=== PATIENT | female | born 1985 | race Caucasian/White ===

== ENCOUNTER 2023-09-05 23:36 | Emergency (ER) | payer OTHER, SELFPAY ==
[2023-09-05 23:39] VITALS: BP 124/68
--- NOTE | 2023-09-06 01:25 | ED.GENMED ---
History of Present Illness
General
Chief Complaint: Musculo-Skeletal Complaint
Source: patient
Exam Limitations: none
Time Seen by Provider: 09/06/23 00:40
Travel History
Have you had any contact with someone who has COVID-19?: No
Do you have any symptoms of coronavirus? Fever > 100 degrees, chills, cough, shortness of breath, sore throat, loss of taste or smell, muscle aches, or headache?: No
History of Present Illness
History of Present Illness:
38-year-old female who was horseback riding this morning around 11 AM when she fell off and her foot twisted. She states she was able to continue riding and doing her chores. She states she was able to drive without difficulty. Later however did
get hurt when she would bear weight. Patient states she tried icing at home but decided come for evaluation. She denies numbness or tingling. The pain is mostly the plantar aspect of the foot
Past History
Past History
ED Past Medical History: None
Phy Exam
Physical Exam
Physical Exam:
CONSTITUTIONAL Vital signs reviewed, Patient alert and oriented to person, place and time. Well-appearing
HEAD atraumatic, normocephalic.
EYES eyelids normal to inspection, Extraocular muscles intact, Conjunctiva normal, Sclera normal.
NECK normal range of motion, Trachea midline, no jugular venous distention.
RESP no respiratory distress
BACK No obvious deformities
UPPER EXTREMITY Gross Range of motion normal, gross motor strength normal
LOWER EXTREMITY Gross range of motion normal, Gross motor strength normal. Medial and lateral malleolus nontender. Deltoid ligament nontender. ATF ligament nontender. Calcaneus nontender. Metatarsals nontender. Mild tenderness to the plantar
aspect of the foot. No dorsal tenderness near the talus.
NEURO Speech normal, No focal motor deficits include, Bradley coma scale 15, Memory normal, Cranial Nerves intact to screening exam.
SKIN Skin warm, dry, and normal in color.
PSYCHIATRIC Patient oriented to person place and time, Normal affect.
Course
Orders/Labs/Results
Orders:
Orders
09/05/23 23:42
Foot, Right 3 View [CR Foot - Right Min 3 Views] Urgent
Comment:
Reason For Exam: fell of her horse this morning pain with walking
Vital Signs
Initial and Last Documented VS:
Initial Vital Signs
Temp Pulse Resp BP Pulse Ox
98.3 F 69 16 124/68 100
09/05/23 23:39 09/05/23 23:39 09/05/23 23:39 09/05/23 23:39 09/05/23 23:39
Last Documented Vital Signs
Temp Pulse Resp BP Pulse Ox
98.3 F 69 16 124/68 100
09/05/23 23:39 09/05/23 23:39 09/05/23 23:39 09/05/23 23:39 09/05/23 23:39
MDM/Problems Addressed
MDM/Problems Addressed:
Foot injury
*Radiology
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
*Pulse Oximetry
Patient hypoxic: no
*Critical Care Note
Total Time (30-74mins, 75-104mins- exclusive of procedures): Not Applicable
Data Reviewed
Source: patient
Further Testing Considered But Not Given:
Considered CT but no clinical but no clinical suspicion for Lisfranc
Patient Management
Escalation/DeEscalation of care consider admission/obs:
No obvious fractures as I suspect the talus injury is chronic as she is not tender in that area. However will place in a boot. If she has pain with weightbearing, add crutches and outpatient orthopedic follow-up
ED Attending Note
-
Portions of this chart may have been created with voice recognition software.� Occasional wrong word or��sound alike� substitutions may have occurred due to the inherent limitations of voice recognition software.
Discharge Plan
Departure
Patient Disposition: Home (Routine Discharge)
Date of Disposition: 09/06/23
Time of Disposition: 01:28
Patient with high blood pressure during this ER visit?: No
Discharge Problem:
Foot injury
Instructions: Foot Sprain (DC)
Prescriptions:
No Action
No Current Medications
0
Referrals:
Clement Martin MD [Active] -
NONE,* [Family Provider] -
Activity Restrictions/Additional Instructions:
Please rest, ice and elevate your injured foot. Please see orthopedics or your doctor in the next 1 week for follow-up and reevaluation. If symptoms persist, repeat imaging may be necessary.
Interventions
Interventions:
*Risk Screen - Suicide Last Done: 09/05/23 23:39
*Neglect/Abuse Screening Last Done: 09/05/23 23:39
ED- Fall Risk Assessment Last Done: 09/05/23 23:55
*ED COVID-19 Vaccine History Last Done: 09/05/23 23:39
ED-Musculoskeletal Assessment Last Done: 09/05/23 23:55
Discharge Date and Time
Print Language: BRITISH
== END 2023-09-06 01:45 | disposition home or self-care (01) ==
LOC: EMR 23:36
PROVIDERS: EMERGENCY PHYSICIAN Emergency Medicine
DX: S99.921A Unspecified injury of right foot, initial encounter (principal); V80.010A Animal-rider injured by fall from or being thrown from horse in noncollision accident, initial encounter; Y93.52 Activity, horseback riding
CPT/HCPCS: 99283; 73630